=== PATIENT | male | born 1965 | race Caucasian/White ===

== ENCOUNTER 2017-04-17 18:33 | Emergency (ER) | payer OTHER, SELFPAY | END 2017-04-17 19:50 | disposition home or self-care (01) | LOC: FER 18:33 | DX: S01.81XA Laceration without foreign body of other part of head, initial encounter (principal); W55.12XA Struck by horse, initial encounter; Y92.009 Unspecified place in unspecified non-institutional (private) residence as the place of occurrence of the external cause | CPT/HCPCS: 12051 ==